=== PATIENT | female | born 1985 | race Caucasian/White ===

== ENCOUNTER 2023-02-20 13:46 | Emergency (ER) | payer SELFPAY ==
[~2023-02-20] VITALS: Ht 170.2 cm; Wt 83.4 kg
[2023-02-20 15:57] VITALS: BP 128/68
== END 2023-02-20 16:07 | disposition home or self-care (01) | DRG 556 ==
LOC: ED 13:46
DX: M25.531 Pain in right wrist (principal); F17.210 Nicotine dependence, cigarettes, uncomplicated

== ENCOUNTER 2024-07-05 14:58 | Emergency (ER) | payer SELFPAY ==
[~2024-07-05] VITALS: Ht 170.2 cm; Wt 57.0 kg
[2024-07-05 15:18] VITALS: BP 112/71
[2024-07-05] MEDS ORDERED: Diph, Acellular Pertussis, Tet 0.5 ML/VIAL (Tdap) SDV IM ONE (15:25)
[2024-07-05] MEDS ORDERED: traMADol HCL 50 MG/TAB PO ONE (15:25)
[2024-07-05 15:30] VITALS: BP 104/59
[2024-07-05 15:46] VITALS: BP 87/53
[2024-07-05 16:01] VITALS: BP 85/49
[2024-07-05] MEDS ORDERED: TRAMADOL HYDROC50 M1 PO (16:15)
[2024-07-05] MEDS ORDERED: NEOMYCIN-BACITRACIN-POLYMYXIN 0.5 GM/PAK PAK TOP ONE (16:15)
[2024-07-05] MEDS ORDERED: MUPIROCIN2 % EX (16:15)
[2024-07-05 16:16] VITALS: BP 84/37
[2024-07-05 16:22] VITALS: BP 104/82
== END 2024-07-05 16:35 | disposition home or self-care (01) | DRG 605 ==
LOC: ED 14:58
PROC: 0HQGXZZ Repair Left Hand Skin, External Approach (ICD-10-PCS; principal; 2024-07-05)
DX: S61.012A Laceration without foreign body of left thumb without damage to nail, initial encounter (principal); S60.411A Abrasion of left index finger, initial encounter; S60.413A Abrasion of left middle finger, initial encounter; W30.89XA Contact with other specified agricultural machinery, initial encounter
CPT/HCPCS: 90715